=== PATIENT | female | born 1975 | race Caucasian/White ===

== ENCOUNTER 2025-05-03 23:44 | Emergency (ER) | payer BC, SELFPAY ==
[2025-05-03 23:45] VITALS: PULSE 88; RESP 18; O2SAT 96
[2025-05-03 23:51] VITALS: BP 120/54
--- NOTE | 2025-05-04 | DI.RAD_ITS ---
Exam(s) XR TIB/FIB LT XR ANKLE LT COMPLETE EXAM: XR ANKLE LT COMPLETE CLINICAL HISTORY: distal tib fib fx w/ deformity, and open skin TECHNIQUE: 2D digital imaging was performed. Three views of the ankle. Two views of the tibia and fibula COMPARISON: CR,XR XR TIB/FIB LT from 05/04/2025 FINDINGS: BONES: There is previously existing hardware in the malleoli. There is an acute spiral fracture through the distal tibial metadiaphysis with lateral displacement. Distal fibula appears intact. There is a proximal fibular fracture with a full shaft with displacement anteriorly. No bony destructive l esion is seen. A smoothly marginated bony density beneath the lateral malleolus consistent with old injury. JOINTS:The ankle mortise is grossly normally aligned. SOFT TISSUE: Swelling IMPRESSION: Mildly spiral fracture of the distal tibia without visible extension to the articular surface. Displaced fracture of the proximal fibula. The preliminary [facility] report was reviewed. DATA REPOSITORY: RADIATION DOSE DELIVERED:
[2025-05-04] MEDS: ACETAMINOPHEN 1,000 MG/100 ML BTL 400 MG IVPB (00:12)
[2025-05-04] MEDS: MORPHine 4 MG/ML SYR IVP ×2 (00:13→01:22)
[2025-05-04 00:19] LABS: Abs Immature Grans 0.03 10^3/uL (0.0-0.06); HCT 38.6 % (36.0-46.0); HGB 12.9 g/dL (11.2-15.7); MCH 30.2 pg (27.0-33.0); MCHC 33.4 % (32.0-36.0); MCV 90 fL (80-95); MPV 8.5 fL (8.0-11.0); Platelet Count 509 10^3/uL (130-400); RBC 4.27 10^6/uL (3.93-5.22); RDW 15.4 % (11.7-14.6); RDW-SD 50.6 fL; WBC 11.28 10^3/uL (4.4-10.8)
[2025-05-04 00:32] LABS: Immature Grans % 0.0 %; RBC Morphology Normal
[2025-05-04 00:37] LABS: ALT 62 U/L (14-59); AST 38 U/L (15-37); Albumin 3.7 g/dL (3.4-5.0); Alkaline Phosphatase 90 U/L (46-116); Anion Gap 15.3 mmol/L (3-11); BUN 14 mg/dL (7-18); Bilirubin, Total 0.2 mg/dL (0.2-1.0); CO2 24.7 mmol/L (21.0-32.0); Calcium 9.3 mg/dL (8.5-10.1); Chloride 100 mmol/L (98-107); Estimated GFR 105.30 (mL/min/1.73m2); Glucose 162 mg/dL (74-106); Potassium 3.9 mmol/L (3.5-5.1); Sodium 140 mmol/L (136-145); Total Protein 7.3 g/dL (6.4-8.2)
[2025-05-04] MEDS: ceFAZolin 3,000 MG in Normal Saline 100 ML 200 MG IVPB (00:38)
--- NOTE | 2025-05-04 00:48 | ED.GENADUL_ITS ---
Discharge Plan Disposition Patient Disposition: Transfer-Acute Inpatient Care Specific Acute Inpt Facility: [facility] Condition: Good Discharge Details Clinical Impression: Maisonneuve fracture of left fibula, Fracture of tibia, left, closed Primary Care Provider: Unknown,Unknown ED Provider: Hansel Etienne Home Meds and New Rx's Prescriptions: No Action hydrochlorothiazide 12.5 mg capsule 12.5 mg PO QDAY atorvastatin [Lipitor] 80 mg tablet 80 mg PO DAILY venlafaxine 75 mg tablet 80 mg PO DAILY omeprazole 20 mg capsule,delayed release(DR/EC) 20 mg PO DAILY HPI General Date/Time Provider Initiated Documentation: 05/03/25 23:58 . HPI Narrative: This is a 49-year-old female with a past medical history of hypertension, diabetes, as well as previous left ankle injury resulting in a distal tibial screw and a distal fibular plate, presents today for left ankle injury. Patient was in her camper when she stepped out funny and twisted her ankle. She d eveloped severe and immediate pain. She subsequently came to the ER for further assessment. She does admit to drinking alcohol tonight. She denies any new numbness or tingling in her foot. She denies striking her head. No other complaints at this time. Related Data Home Medications ?Medication ?Instructions ?Recorded ?Confirmed atorvastatin 80 mg tablet (Lipitor) 80 mg PO DAILY 05/03/25 hydrochlorothiazide 12.5 mg capsule 12.5 mg PO QDAY 05/03/25 omeprazole 20 mg capsule,delayed 20 mg PO DAILY 05/03/25 release venlafaxine 75 mg tablet 80 mg PO DAILY 05/03/25 07/04/02 Allergies Allergy/AdvReac Type Severity Reaction Status Date / Time No Known Allergies Allergy Unverified 05/03/25 23:52 General Stated Complaint: Orthopedic HUSSAIN: 3 Exam Narrative Exam Narrative: 1.Const: Well-nourished, Well-developed, appearing stated age 2.Eyes: PERRL, no conjunctival injection, and symmetrical lids. 3.ENT: Atraumatic external nose and ears. Moist MM. Neck: Symmetric, trachea midline, No thyromegaly. 4.CVS: +S1/S2, Peripheral pulses 2+ and equal in all extremities. Brisk capillary refill in all extremities. 5.RESP: Unlabored respiratory effort. Clear to auscultation bilaterally. No wheezes rales or rhonchi 6.GI: Soft, Nontender/Nondistended, No hepatosplenomegaly. No guarding or rebound. 7.MSK: Left lower extremity demonstrates proximal fibular tenderness, no tenderness in the knee otherwise. She also has distal tibial and fibular tenderness, with mild to moderate swelling, questionable slight deformity. No tenderness in the foot, calcaneus, or toes. Brisk capillary refill for all toes, dorsalis pedis pulse +2 bilaterally. 8.Skin: Warm, Dry. No rashes or lesions. Mild abrasion over the mid to distal anterior damon on the left 9.Neuro: tank terminal gauger II-XII grossly intact. Sensation grossly intact, no focal neurologic deficits. 10.Psych: (AAO) x3. Appropriate mood and affect Course Vital Signs Vital signs: Vital Signs Pulse 88 05/03/25 23:45 Respiratory Rate 18 05/03/25 23:45 Pulse Oximetry 96 05/03/25 23:45 Pulse 88 05/03/25 23:45 Respiratory Rate 18 05/03/25 23:45 Blood Pressure 120/54 L 05/03/25 23:51 Blood Pressure Mean 76 05/03/25 23:51 Blood Pressure Position Sitting 05/03/25 23:45 Pulse Oximetry 96 05/03/25 23:45 Oxygen Delivery Method Aerosol Mask 05/03/25 23:51 Oxygen Flow Rate 0 05/03/25 23:45 Lab/Test Results Lab/Test Results: Laboratory Tests Range/Units 05/04/25 00:00 WBC (4.4-10.8) 10^3/uL 11.28 H RBC (3.93-5.22) 10^6/uL 4.27 Hgb (11.2-15.7) g/dL 12.9 Hct (36.0-46.0) % 38.6 MCV (80-95) fL 90 MCH (27.0-33.0) pg 30.2 MCHC (32.0-36.0) % 33.4 RDW (11.7-14.6) % 15.4 H Plt Count (130-400) 10^3/uL 509 H MPV (8.0-11.0) fL 8.5 Immature Gran % % 0.0 Neutrophils % % 38.0 Lymphocytes % % 45.0 Atypical Lymphs % % 10 Monocytes % % 7.0 Eosinophils % % 0.0 Basophils % % 0.0 Nucleated RBC % (0.0-0.3) % 0.0 Absolute Neutrophils (1.2-6.7) 10^3/uL 4.29 Absolute Lymphocytes (1.2-3.4) 10^3/uL 6.20 H Absolute Monocytes (0.1-0.8) 10^3/uL 0.79 Absolute Eosinophils (0.0-0.7) 10^3/uL 0.00 Absolute Basophils (0.0-0.2) 10^3/uL 0.00 RBC Morphology Normal Sodium (136-145) mmol/L 140 Potassium (3.5-5.1) mmol/L 3.9 Chloride (98-107) mmol/L 100 Carbon Dioxide (21.0-32.0) mmol/L 24.7 Anion Gap (3-11) mmol/L 15.3 H BUN (7-18) mg/dL 14 Creatinine (0.55-1.02) mg/dL 0.7 Est GFR (CKD-EPI 2020) (mL/min/1.73m2) 105.30 Glucose (74-106) mg/dL 162 H Calcium (8.5-10.1) mg/dL 9.3 Total Bilirubin (0.2-1.0) mg/dL 0.2 AST (15-37) U/L 38 H ALT (14-59) U/L 62 H Alkaline Phosphatase (46-116) U/L 90 Total Protein (6.4-8.2) g/dL 7.3 Albumin (3.4-5.0) g/dL 3.7 Ethyl Alcohol (<10) mg/dL 260.6 H Medical Decision Making This is a 49-year-old female with a past medical history of hypertension, di abetes, as well as previous left ankle injury resulting in a distal tibial screw and a distal fibular plate, presents today for left ankle injury. Patient was in her camper when she stepped out funny and twisted her ankle. She developed severe and immediate pain. She subsequently came to the ER for further assessment. She does admit to drinking alcohol tonight. She denies any new numbness or tingling in her foot. She denies striking her head. No other complaints at this time. Exam of left lower extremity demonstrates proximal fibular tenderness, no tenderness in the knee otherwise. She also has distal tibial and fibular tenderness, with mild to moderate swelling, questionable slight deformity. No tenderness in the foot, calcaneus, or toes. Brisk capillary refill for all toes, dorsalis pedis pulse +2 bilaterally. There is also a very mild abrasion to the left anterior damon. No protruding bone though. No other signs of trauma on exam. Concern for fibular and tibial fracture. Questionable open component, however clinically it looks more like an abrasion for the skin tear. Out of an abundance of caution we will give 3 g of Ancef, her tetanus was updated 5 years ago at her previous surgery. Will get x-rays, treat the patient's pain, monitor closely and reassess. 12:54 AM X-ray confirms evidence of suspected fracture, with a comminuted fracture of the distal tibial metadiaphysis, as well as a Maisonneuve fracture of the proximal to mid fibula. Patient remains neurovascularly intact. We will reach out to [facility] for potential transfer as we do not have orthopedics here over the weekend. 2:20 AM Discussed the case with Dr. Poon at [facility] orthopedics. He agrees with the need for surgery and recommends transfer. However he states that he needs to d iscuss it with his attending in the morning prior to formal acceptance. Additionally they do not have any beds at this time, and we will not have any until mid afternoon. They will call us back this morning after discussion with orthopedic attending. In the meantime the patient's leg has been splinted for stabilization. Pain is being controlled with Dilaudid. She remains neurovascularly intact, with no viselike sensation, or neurovascular compromise. We did contact [facility] where the patient lives and works. I spoke with their orthopedic PA. Unfortunately they are unable to make any decision unless they see the images. Unfortunately we are not able to push the images down there through our system per our radiology techs. We we will continue to rely on the [facility] disposition at this time. Patient will be signed out to my colleague for follow-up on [facility] final acceptance and bed placement. 7:10 AM Patient remains comfortable. Pulses remain intact, no viselike sensation. No evidence of compartment syndrome. FINDINGS: Tubes, catheters and devices: The medial malleolar cannulated screws and the distal fibular plate are intact. Bones/joints: There is a comminuted displaced distal tibial metadiaphyseal fracture. There is a comminuted displaced proximal left fibular diaphyseal fracture. Soft tissues: Normal. IMPRESSION: Distal tibial fracture and Maisonneuve fracture of the fibula. Thank you for allowing us to participate in the care of your patient. Dictated and Authenticated by: Susanne Arnold MD 05/04/2025 12:51 AM Eastern Time ([place] & [place] FINDINGS: Tubes, catheters and devices: Medial malleolar cannulated screws are intact. Distal fibular plate is intact. Bones/joints: There is a markedly displaced, comminuted fracture of the distal tibial metadiaphysis. Degenerative changes are present at the lateral malleolus. The mortise joint is grossly intact. Visualized bones of the midfoot appear grossly intact. Soft tissues: Normal. IMPRESSION: Distal tibial metadiaphyseal fracture as above. Thank you for allowing us to participate in the care of your patient. Dictated and Authenticated by: Susanne Arnold MD 05/04/2025 12:50 AM Eastern Time ([place] & [place]) PFSH All Active Problems (Updated 05/04/25 @ 03:16 by Hansel Etienne DO) Fracture of tibia, left, closed (Acute) Maisonneuve fracture of left fibula (Acute) Social History Smoking/Tobacco Use Status: Current every day Tobacco Type: cigarettes Smoking risk assessment performed?: Yes Alcohol Intake: current Alcohol Intake frequency: a few times a month Substance use type: does not use
--- NOTE | 2025-05-04 00:50 | DI.[facility]_ITS ---
PROCEDURE INFORMATION: Exam: XR Left Ankle Exam date and time: 05/04/2025 12:23 AM Age: 49 years old Clinical indication: Injury or trauma; Fall; Blunt trauma; Left; Injury details: Distal tib fib FX w/ deformity, and open skin; Prior surgery; Surgery date: 6+ months; Surgery type: Ankle surg TECHNIQUE: Imaging protocol: Radiologic exam of the left ankle. Views: 3 or more views. COMPARISON: No relevant prior studies available. FINDINGS: Tubes, catheters and devices: Medial malleolar cannulated screws are intact. Distal fibular plate is intact. Bones/joints: There is a markedly displaced, comminuted fracture of the distal tibial metadiaphysis. Degenerative changes are present at the lateral malleolus. The mortise joint is grossly intact. Visualized bones of the midfoot appear grossly intact. Soft tissues: Normal. IMPRESSION: Distal tibial metadiaphyseal fracture as above. Dictated and Authenticated by: Susanne Arnold MD. Orderin Lowell Hamm MD
--- NOTE | 2025-05-04 00:51 | DI.[facility]_ITS ---
PROCEDURE INFORMATION: Exam: XR Left Tibia and Fibula Exam date and time: 05/04/2025 12:25 AM Age: 49 years old Clinical indication: Injury or trauma; Fall; Blunt trauma; Lower leg; Left; Injury details: Distal tib fib FX w/ deformity, and open skin; Prior surgery; Surgery date: 6+ months; Surgery type: Ankle surg TECHNIQUE: Imaging protocol: Radiologic exam of the left tibia and fibula. Views: 2 views. COMPARISON: CR XR ANKLE LT COMPLETE 05/04/2025 12:23 AM FINDINGS: Tubes, catheters and devices: The medial malleolar cannulated screws and the distal fibular plate are intact. Bones/joints: There is a comminuted displaced distal tibial metadiaphyseal fracture. There is a comminuted displaced proximal left fibular diaphyseal fracture. Soft tissues: Normal. IMPRESSION: Distal tibial fracture and Maisonneuve fracture of the fibula. Dictated and Authenticated by: Susanne Arnold MD. Orderin Lowell Hamm MD
[2025-05-04] MEDS: HYDROmorphone 2 MG/ML SYR 1 MG IVP ×4 (02:08→07:56)
== END 2025-05-04 08:21 | disposition short-term general hospital (02) ==
PROVIDERS: Student in an Organized Health Care Education/Training Program; Emergency Provider Emergency Medicine
DX: S82.242A Displaced spiral fracture of shaft of left tibia, initial encounter for closed fracture (principal); S82.862A Displaced Maisonneuve's fracture of left leg, initial encounter for closed fracture; I10 Essential (primary) hypertension; E11.9 Type 2 diabetes mellitus without complications; F17.210 Nicotine dependence, cigarettes, uncomplicated; Y90.7 Blood alcohol level of 200-239 mg/100 ml; W10.8XXA Fall (on) (from) other stairs and steps, initial encounter; Y93.01 Activity, walking, marching and hiking
CPT/HCPCS: 80053; 82962; 96365; 96375; 96376; 99284; 73590; 73610; 80320; 85025; J0131; J0690; J1171; J2270